=== PATIENT | female | born 1985 | race Caucasian/White ===

== ENCOUNTER 2018-04-04 06:37 | Day surgery (SDC) | payer BC ==
[2018-04-02 09:22] VITALS: BMI 45.1
[~2018-04-04 06:37] MED LIST: LACTATED RINGERS 1,000 ML IV SCH
[2018-04-04] MEDS ORDERED: LACTATED RINGERS 1,000 ML IV ONE (07:05)
[2018-04-04 07:23] VITALS: TEMP 98.2
[2018-04-04] MEDS ORDERED: PROPOFOL 10 MG/ML 20 ML VIAL IV ONE (08:10)
[2018-04-04] MEDS ORDERED: LIDOCAINE 1% INJ 10MG/ML (20 ML MDV) ONE (08:10)
[2018-04-04] MEDS ORDERED: MIDAZOLAM 2 MG/2 ML VIAL ONE (08:10)
[2018-04-04] MEDS ORDERED: fentaNYL (PF) 50 MCG/ML 2 ML AMP ONE (08:10)
[2018-04-04 08:45] VITALS: RESP 16
[2018-04-04 09:05] VITALS: BP 104/71; PULSE 69
--- NOTE | 2018-04-04 15:18 | P.PCN ---
Date of Procedure: 04/04/18 Procedure(s) Performed: Procedures: 1. Esophagogastroduodenoscopy and biopsy. 2. Colonoscopy and biopsy. Preoperative diagnosis: Epigastric pain and change in bowel habits. Postoperative diagnosis: 1. Mild gastritis duodenitis. 2. Normal colonoscopy. 3. Incidental finding of pinworms in cecum. 4. Biopsies obtained from the duodenum, antrum and esophagus. 5. Blind biopsy obtained from the terminal ileum. 6. Random biopsies obtained from the colon. Preparation: HalfLytely prep. Sedation: Was provided by anesthesia. Brief clinical history: The patient is a 33-year-old female who has been having issues with abdominal pains and change in bowel habits for around 3 years that progressively got worse over the last month. The patient was seen in 2014 around the time when she had her cholecystectomy. Biopsies showed colitis. She was treated with Bentyl. Typically, she has one to 3 bowel movements per day then may have no bowel movements and feels distressed and then would have urgent bowel movements and diarrhea for 24 hours or so. This has been worse over the prior month. She also complained of abdominal distention and gassiness. I scheduled this evaluation to assess for inflammatory bowel disease , celiac disease or other pathology. Procedure: With the patient on her left lateral decubitus position and after informed consent and adequate sedation, I passed the Olympus-GIF 160 video upper endoscope through the cricopharyngeus down the esophagus. The esophagus appeared healthy with no obvious erosions, ulcers, strictures or Laguna's esophagus. No definite hiatal hernia. The endoscope was then passed into the stomach which was insufflated with air and inspected in detail including the retroflex view in the cardia. There was some mottling and erythema in the antrum consistent with mild gastritis but there was no ulcers or erosions. Pyloric channel, duodenal bulb, post bulbar area and descending duodenum appeared within normal limits. Because of her symptoms, I obtained biopsies from the duodenum, antrum and esophagus then the endoscope was withdrawn and I proceeded to perform the colonoscopy. Perianal area did not show any fissures or fistulas. There were no masses felt on digital rectal examination. The Olympus CFQ 160L video colonoscope was then inserted in the rectum in the usual fashion and advanced to the cecum. I was not able to intubate the ileocecal valve after a few attempts, but I was able to obtain a blind biopsy from the terminal ileum. There was couple pinworms noted moving in the cecum, but the colon, otherwise, appeared healthy. I obtained random colon biopsies then I retroflexed the endoscope in the rectum before the endoscope was withdrawn. The patient tolerated the procedure well. Plan: I summarized the findings to the patient and her sister. I gave her a prescription for albendazole to take 400 mg at this time and 400 mg 2 weeks later. I advised her to discuss with pediatrics whether her 2 children should be treated as well and she will be discussing with you treatment for other household family members. I will see her in follow-up in few weeks to assess her progress and decide if her symptoms are at least partially related to her pinworm infestation. I will keep you updated on her progress.
== END 2018-04-04 09:37 | disposition home or self-care (01) ==
LOC: ORWHC2ENDO 06:37
DX: K29.50 Unspecified chronic gastritis without bleeding (principal); B96.81 Helicobacter pylori [H. pylori] as the cause of diseases classified elsewhere; K52.9 Noninfective gastroenteritis and colitis, unspecified; K29.80 Duodenitis without bleeding; B80 Enterobiasis; E03.9 Hypothyroidism, unspecified; Z79.890 Hormone replacement therapy; Z79.899 Other long term (current) drug therapy
CPT/HCPCS: 81025; 88305; 88342; 45380; 43239; J2250; J2001; J3010; J2704

== ENCOUNTER 2018-11-27 19:03 | Emergency (ER) | payer BC, OTHER ==
[2018-11-27 19:07] VITALS: BP 140/86; PULSE 105; RESP 16; TEMP 97.9
--- NOTE | 2018-11-27 21:58 | XR ---
EXAMINATION TYPE: XR chest 2V DATE OF EXAM: 11/27/2018 COMPARISON: 07/14/2012 HISTORY: Chest pain TECHNIQUE: Frontal and lateral views of the chest are obtained. FINDINGS: Heart and mediastinum are normal. Lungs are clear. Diaphragm is normal. Bony thorax appear s normal. IMPRESSION: Normal chest. No change.
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
== END 2018-11-27 22:57 | disposition home or self-care (01) ==
LOC: EC 19:03
DX: S16.1XXA Strain of muscle, fascia and tendon at neck level, initial encounter (principal); R51 Headache; E03.9 Hypothyroidism, unspecified; F32.9 Major depressive disorder, single episode, unspecified; Z79.890 Hormone replacement therapy; Z79.899 Other long term (current) drug therapy; V43.52XA Car driver injured in collision with other type car in traffic accident, initial encounter; Y93.89 Activity, other specified; Y92.410 Unspecified street and highway as the place of occurrence of the external cause
CPT/HCPCS: 70450; 71046; 72125; 99284

== ENCOUNTER → 2019-06-03 | Outpatient (CLI) | payer BC ==
--- NOTE | 2019-06-04 04:44 | CT ---
EXAMINATION TYPE: CT abdomen pelvis wo con DATE OF EXAM: 06/03/2019 COMPARISON: 10/06/2014 HISTORY: 34-year-old female with microscopic hematuria, left sided sharp pain CT DLP: 1185 mGycm. Automated exposure control for dose reduction was used. TECHNIQUE: Contiguous axial scanning of the abdomen and pelvis without IV contrast. Coronal and sagit nerissa reconstructions performed. FINDINGS: Heart normal size without pericardial effusion. Lung bases clear without pleural effusion. Noncontrast appearance of the liver, adrenal glands, spleen, and pancreas show no gross abnormality. Cholecystectomy clips. Kidneys show no contour deforming lesion, nephrolithiasis, or hydronephrosis. No dilated small bowel, free fluid, or free air. There is a round 4.0 cm lesion along the lesser curvature of the stomach, axial image 48 and coronal image 48. Prominent 7 mm gastrohepatic ligament lymph node. Scattered prominent mesenteric lymph nodes measurin g up to 6 mm or larger in 2015. Normal appendix. Mild stool burden. Uterus and nondistended. Multiple pelvic phleboliths. Uterus anteverted. Both ovaries are visualized with a 2.0 cm dominant follicle or functional cyst in the left ovary. No abnormal fluid collection in the pelvis or pelvic lymphadenopathy. Bones: No osseous destructive process. IMPRESSION: 1. A 4.0 cm round intramural mass along the lesser curvature of the stomach. Neoplasm is suggested th ough the overall smooth contours favors a benign etiology. GIST tumor or other mesenchymal tumors are the favored differential. Further evaluation and workup recommended. 2. No nephrolithiasis or hydronephrosis. 3. No acute inflammatory process identified in the abdomen or pelvis.
== END | disposition home or self-care (01) ==
LOC: RADCTMAIN 15:58
PROVIDERS: ATTEND Family Medicine
DX: R22.9 Localized swelling, mass and lump, unspecified (principal); R31.9 Hematuria, unspecified
CPT/HCPCS: 74176

== ENCOUNTER 2019-06-18 08:08 | Day surgery (SDC) | payer BC ==
[2019-06-16 11:48] VITALS: BMI 46.3
[~2019-06-18 08:08] MED LIST changes: +LIDOCAINE 1% 20 ML VIAL (10MG/ML) FOR IV START INTRADERMA PRN
[2019-06-18 08:37] VITALS: RESP 16; TEMP 97.8
[2019-06-18] MEDS ORDERED: LIDOCAINE 1% INJ 10MG/ML (20 ML MDV) ONE (09:27)
[2019-06-18] MEDS ORDERED: PROPOFOL 10 MG/ML 20 ML VIAL IV ONE (09:27)
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
--- NOTE | 2019-06-18 09:41 | P.OP ---
Date of Procedure: 06/18/19 Preoperative Diagnosis: Gastric mass Postoperative Diagnosis: Gastric mass Procedure(s) Performed: EGD with biopsy Anesthesia: MAC Surgeon: Bharat Villagomez Pathology: other (Gastric mass) Condition: stable Disposition: PACU Description of Procedure: The patient's placed on the endoscopy table in the lateral position. She received IV sedation. The gastroscope placed oropharynx and passed in the esophagus and stomach. Scope was then placed through the pylorus. First and second portion duodenum appeared normal. Scope summer back and the antrum this. Mildly scope summer back and on the lesser curvature in the mid portion of the stomach there was a gastric mass seen. The mass measures approximately 4 cm in size and smooth located below the mucosa. 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 This area is biopsied. The area was also tattooed with the ink spot. The scope was then withdrawn remainder some appeared normal. There is no significant hiatal hernia. The GE junction was at 47 is. The distal esophagus. Normal. The proximal esophagus appeared normal. Scope was withdrawn for petros ent.
[2019-06-18] MEDS ORDERED: ONDANSETRON 4 MG/2 ML VIAL IVP ONE (09:46)
[2019-06-18 10:00] VITALS: BP 123/87; PULSE 91
== END 2019-06-18 10:46 | disposition home or self-care (01) ==
LOC: ORWHC2ENDO 08:08
PROVIDERS: ATTEND Surgery
DX: K29.50 Unspecified chronic gastritis without bleeding (principal); K21.9 Gastro-esophageal reflux disease without esophagitis; E07.9 Disorder of thyroid, unspecified; M54.9 Dorsalgia, unspecified; F90.9 Attention-deficit hyperactivity disorder, unspecified type; F32.9 Major depressive disorder, single episode, unspecified; K58.9 Irritable bowel syndrome, unspecified; Z87.19 Personal history of other diseases of the digestive system; Z86.19 Personal history of other infectious and parasitic diseases; Z98.890 Other specified postprocedural states; Z90.49 Acquired absence of other specified parts of digestive tract; Z98.51 Tubal ligation status; Z91.89 Other specified personal risk factors, not elsewhere classified; Z87.898 Personal history of other specified conditions; Z79.890 Hormone replacement therapy; Z84.89 Family history of other specified conditions; Z79.899 Other long term (current) drug therapy
CPT/HCPCS: 81025; 88305; 43239; 43236; J2405; J2001; J2704; 43243

== ENCOUNTER → 2019-06-21 | Outpatient (CLI) | payer BC ==
[2019-06-21 10:31] LABS: Basophils % (A) 0 %; Eosinophils # (A) 0.1 k/uL (0-0.7); Eosinophils % (A) 1 %; HCT 40.3 % (34.0-46.0); HGB 13.7 gm/dL (11.4-16.0); Lymphocytes % (A) 39 %; MCH 28.1 pg (25.0-35.0); MCV 82.5 fL (80.0-100.0); Mean Platelet Volume 8.1; Monocytes # (A) 0.2 k/uL (0-1.0); Monocytes % (A) 4 %; Neutrophils # (A) 2.7 k/uL (1.3-7.7); Neutrophils % (A) 54 %; Platelet Count 310 k/uL (150-450); RBC 4.88 m/uL (3.80-5.40); RDW 13.2 % (11.5-15.5)
== END | disposition home or self-care (01) ==
LOC: LABPAT 10:07
PROVIDERS: ATTEND Anesthesiology
DX: Z01.812 Encounter for preprocedural laboratory examination (principal)
CPT/HCPCS: 36415; 85025

== ENCOUNTER 2019-06-23 07:17 | Inpatient (IN) | payer BC ==
[2019-06-20 08:28] VITALS: BMI 46.3
[~2019-06-23 07:17] MED LIST changes: +DEXAMETHASONE SOD PHOSPHATE 10 MG/ML 1 ML VIAL IV ONE; +HEPARIN SODIUM,PORCINE 5,000 UNIT/ML 1 ML VIAL SQ ONE; +HYDROmorphone 0.5 MG/0.5 ML SYRINGE IVP PRN; -LACTATED RINGERS 1,000 ML IV SCH; +ONDANSETRON 4 MG/2 ML VIAL IVP ONE; +SCOPOLAMINE 1.5MG/72HR PATCH TRANSDERM ONE; +ceFAZolin 3 GM in SODIUM CHLORIDE 0.9% 100 ML IVPB ONE
[2019-06-23] MEDS: LACTATED RINGERS 1,000 ML IV SCH ×2 (07:45→11:08)
[2019-06-23] MEDS ORDERED: MIDAZOLAM 2 MG/2 ML VIAL IV ONE (08:15)
--- NOTE | 2019-06-23 08:57 | P.GSHP ---
History of Present Illness H&P Date: 06/23/19 Chief Complaint: gastric mass this a 34-year-old female with history of gastric mass. Patient resents today for partial gastrectomy. Patient's aware the risks of surgery including conversionto the open procedure Past Medical History Past Medical History: GERD/Reflux, Thyroid Disorder Additional Past Medical History / Comment(s): HX OF IBS, COLITIS & H-PYLORI., STATES LEFT BACK PAIN -TUMOR ON STOMACH. History of Any Multi-Drug Resistant Organisms: None Reported Past Surgical History: Section, Cholecystectomy, Tubal Ligation Additional Past Surgical History / Comment(s): colonoscopy , egd 06/18/19 Past Anesthesia/Blood Transfusion Reactions: Previous Problems w/ Anesthesia, Family Hisory of Malignant Hyperthermia, Postoperative Nausea & Vomiting (PONV) Additional Past Anesthesia/Blood Transfusion Reaction / Comment(s): PT HAD SEVERE PONV AFTER . PTS SISTER HAD MALIGNANT HYPERTHERMIA WITH TONSIL SURGERY AT AGE 8. SHE IS NOW 37 YRS OLD, STATES IT WAS GENERAL ANESTHESIA - UNKNOWN NAME OF MEDICATION., PT HAS NOT BEEN TESTED. Past Psychological History: ADD/ADHD, Depression Smoking Status: Never smoker Past Alcohol Use History: Occasional Past Drug Use History: None Reported - Past Family History Sister(s) Family Medical History: No Reported History Additional Family Medical History / Comment(s): malignant hyperthermia from anesthesia Medications and Allergies Home Medications Medication Instructions Recorded Confirmed Type Levothyroxine Sodium [Synthroid] 137 mcg PO DAILY 11/27/18 06/20/19 History Ergocalciferol [Vitamin D2] 50,000 unit PO MO 06/16/19 06/20/19 History Escitalopram Oxalate [Lexapro] 20 mg PO HS 06/16/19 06/20/19 History Lisdexamfetamine Dimesylate 20 mg PO QAM 06/16/19 06/20/19 History [Vyvanse] Allergies Allergy/AdvReac Type Severity Reaction Status Date / Time No Known Allergies Allergy Verified 06/20/19 08:22 Surgical - Exam Vital Signs Temp Pulse Resp BP Pulse Ox 97.4 F L 85 20 140/63 97 06/23/19 07:41 06/23/19 07:41 06/23/19 07:41 06/23/19 07:41 06/23/19 07:41 - General well developed, well nourished, no distress - Eyes PERRL - ENT normal pinna - Neck no masses - Respiratory normal expansion - Cardiovascular Rhythm: regular - Abdomen Abdomen: soft, non tender Assessment and Plan Assessment: history gastric mass. We'll perform laparoscopic possible open partial gastrectomy.
[2019-06-23] MEDS ORDERED: ROCURONIUM BROMIDE 10 MG/ML 10 ML VIAL IV ONE (09:20)
[2019-06-23] MEDS ORDERED: HYDROmorphone (PF) 1 MG/ML ONE (09:20)
[2019-06-23] MEDS ORDERED: MIDAZOLAM 2 MG/2 ML VIAL ONE (09:20)
[2019-06-23] MEDS ORDERED: LIDOCAINE 1% INJ 10MG/ML (20 ML MDV) ONE (09:20)
[2019-06-23] MEDS ORDERED: KETOROLAC 30 MG/ML 1 ML VIAL ONE (09:20)
[2019-06-23] MEDS ORDERED: fentaNYL (PF) 50 MCG/ML 2 ML AMP ONE (09:20)
[2019-06-23] MEDS ORDERED: GLYCOPYRROLATE 0.2 MG/ML 2 ML VIAL ONE (09:20)
[2019-06-23] MEDS ORDERED: NEOSTIGMINE 1 MG/ML 10 ML VIAL ONE (09:20)
[2019-06-23] MEDS ORDERED: ONDANSETRON 4 MG/2 ML VIAL ONE (09:20)
[2019-06-23] MEDS ORDERED: PROPOFOL 10 MG/ML 20 ML VIAL IV ONE (09:20)
[2019-06-23] MEDS ORDERED: LACTATED RINGERS 1,000 ML IV ONE (09:34)
[2019-06-23] MEDS ORDERED: ceFAZolin 1,000 MG VIAL IVPB ONE (09:48)
[2019-06-23] MEDS ORDERED: BUPIVACAIN-EPI 0.25%-1:200,000 30 ML VIAL SQ ONE (10:06)
[2019-06-23] MEDS ORDERED: NALOXONE 0.4 MG/ML 1 ML VIAL IV PRN ×2 (10:18→11:11)
[2019-06-23] MEDS ORDERED: ROPIVACAINE 250 MG, HYDROMORPHONE (PF) 5 MG in SODIUM CHLORIDE 0.9% 200 ML EPIDURAL PRN (10:18)
[2019-06-23] MEDS ORDERED: HYDROmorphone 1 MG/ML 1 ML SYRINGE IVP PRN (11:11)
[2019-06-23] MEDS ORDERED: ONDANSETRON 4 MG TAB PO PRN (11:14)
--- NOTE | 2019-06-23 11:36 | P.OP ---
Date of Procedure: 06/23/19 Preoperative Diagnosis: Gastric mass Postoperative Diagnosis: Gastric mass Procedure(s) Performed: Laparoscopic partial gastrectomy Anesthesia: CARMEN Surgeon: Bharat Villagomez Estimated Blood Loss (ml): 10 Pathology: other (Gastrectomy) Condition: stable Disposition: PACU Description of Procedure: The patient was placed on the operating room table in the supine position. She received general anesthesia and then was placed in dorsal lithotomy position. Her abdomen was prepped and draped in sterile fashion. The skin incision sites were anesthetized 1% local Xylocaine. And then the skin was incised with an 11 blade in the left lateral position. Using a blade less trocar under direct visualization the peritoneal cavity was entered. The abdomen was insufflated and then a 5 mm laparoscope was placed into the peritoneal cavity. A 5 mm trocar was placed in the right epigastric, and right lateral position. A 15 mm trocar was placed in the supra-umbilical position and another 5 mm trocar was placed in the left lateral position. The left lateral lobe of the liver was retracted. The stomach was visualized. The gastric mass was visualized. It appeared to be in the mid body of stomach on the anterior gastric wall. Using a laparoscopic CAMERON stapler the gastric mass was wedged off of the anterior gastric wall. The stomach was then insufflated with methylene blue normal saline. There is no evidence of any extravasation. The duodenum could be seen filling. At this point the abdomen was irrigated. The gastric mass brought through the 15 mm trocar site after the fascia opening was extended. The trochars were removed. The fascia of the 15 mm trocar site was closed with 0 Vicryl. Skin was closed interrupted 3-0 Monocryl suture. Dermabond dressing was applied.
[2019-06-23] MEDS: ALBUTEROL NEBULIZED 2.5 MG/3 ML INHALATION SCH ×3 (11:43→20:30)
[2019-06-23] MEDS: KETOROLAC 30 MG/ML 1 ML VIAL IVP SCH ×3 (13:06→23:59)
[2019-06-23] MEDS: 0.9% NACL WITH KCL 20 MEQ/L 1,000 ML IV SCH ×3 (13:15→23:59)
[2019-06-23] MEDS ORDERED: ENOXAPARIN 40 MG/0.4 ML SYRINGE SQ SCH (21:00)
[2019-06-23] MEDS: ENOXAPARIN 40 MG/0.4 ML SYRINGE SQ SCH (23:59)
[2019-06-24] MEDS: KETOROLAC 30 MG/ML 1 ML VIAL IVP SCH ×3 (05:28→16:25)
[2019-06-24 07:23] LABS: Potassium 4.5 mmol/L (3.5-5.1)
[2019-06-24 07:32] LABS: Basophils % (A) 0 %; Eosinophils % (A) 1 %; HCT 34.9 % (34.0-46.0); HGB 11.4 gm/dL (11.4-16.0); Hypochromasia Slight; Lymphocytes # (A) 1.1 k/uL (1.0-4.8); Lymphocytes % (A) 15 %; MCH 28.6 pg (25.0-35.0); MCHC 32.8 g/dL (31.0-37.0); Mean Platelet Volume 8.5; Monocytes # (A) 0.4 k/uL (0-1.0); Monocytes % (A) 5 %; Neutrophils # (A) 5.9 k/uL (1.3-7.7); Neutrophils % (A) 79 %; Platelet Count 283 k/uL (150-450); RBC 4.01 m/uL (3.80-5.40); RDW 13.2 % (11.5-15.5); WBC 7.5 k/uL (3.8-10.6)
[2019-06-24] MEDS: ALBUTEROL NEBULIZED 2.5 MG/3 ML INHALATION SCH ×4 (08:02→19:14)
[2019-06-24] MEDS ORDERED: ONDANSETRON 4 MG/2 ML VIAL IVP PRN (08:56)
[2019-06-24] MEDS: ENOXAPARIN 40 MG/0.4 ML SYRINGE SQ SCH ×2 (08:59→20:40)
[2019-06-24] MEDS ORDERED: SODIUM CHLORIDE 0.9% 500 ML 500 ML IV ONE (09:01)
[2019-06-24] MEDS: ONDANSETRON 4 MG/2 ML VIAL IVP PRN ×2 (09:02→16:18)
[2019-06-24] MEDS: PANTOPRAZOLE 40 MG/10 ML VIAL IV SCH (09:03)
[2019-06-24] MEDS: 0.9% NACL WITH KCL 20 MEQ/L 1,000 ML IV SCH ×3 (09:10→21:50)
[2019-06-24] MEDS: METOCLOPRAMIDE 5 MG/ML 2 ML VIAL IVP SCH ×2 (11:30→18:50)
--- NOTE | 2019-06-24 11:33 | P.CONS ---
History of Present Illness - Reason for Consult Consult date: 06/24/19 medical management GERD, hypothyroidism, depression,ADD Requesting physician: Bharat Villagomez - Chief Complaint gastric mass - History of Present Illness this is a 34-year-old femalewith history of gastroesophageal reflux disease, hypothyroidism, IBS/colitis,PONV, ADD, depression, gastric mass status post laparoscopic partial gastrectomy.tolerated procedure well. Pain controlled with epidural. No flatus, no bowel movement.NPO.received Zofran this morning for nausea. Denies chest pain, palpitations or shortness of breath. Denies lightheadedness, dizziness or focal deficits. Review of Systems ROS Statement: Those systems with pertinent positive or pertinent negative responses have been documented in the HPI. ROS Other: All systems not noted in ROS Statement are negative. Past Medical History Past Medical History: GERD/Reflux, Thyroid Disorder Additional Past Medical History / Comment(s): HX OF IBS, COLITIS & H-PYLORI., STATES LEFT BACK PAIN -TUMOR ON STOMACH. History of Any Multi-Drug Resistant Organisms: None Reported Past Surgical History: Section, Cholecystectomy, Tubal Ligation Additional Past Surgical History / Comment(s): colonoscopy , egd 06/18/19 Past Anesthesia/Blood Transfusion Reactions: Previous Problems w/ Anesthesia, Family Hisory of Malignant Hyperthermia, Postoperative Nausea & Vomiting (PONV) Additional Past Anesthesia/Blood Transfusion Reaction / Comm: PT HAD SEVERE PONV AFTER . PTS SISTER HAD MALIGNANT HYPERTHERMIA WITH TONSIL SURGERY AT AGE 8. SHE IS NOW 37 YRS OLD, STATES IT WAS GENERAL ANESTHESIA -UNKNOWN NAME OF MEDICATION., PT HAS NOT BEEN TESTED. Past Psychological History: ADD/ADHD, Depression Smoking Status: Never smoker Past Alcohol Use History: Occasional Past Drug Use History: None Reported - Past Family History Sister(s) Family Medical History: No Reported History Additional Family Medical History / Comment(s): malignant hyperthermia from anesthesia Medications and Allergies Home Medications Medication Instructions Recorded Confirmed Type Levothyroxine Sodium [Synthroid] 137 mcg PO DAILY 11/27/18 06/20/19 History Ergocalciferol [Vitamin D2] 50,000 unit PO MO 06/16/19 06/20/19 History Escitalopram Oxalate [Lexapro] 20 mg PO HS 06/16/19 06/20/19 History Lisdexamfetamine Dimesylate 20 mg PO QAM 06/16/19 06/20/19 History [Vyvanse] Allergies Allergy/AdvReac Type Severity Reaction Status Date / Time No Known Allergies Allergy Verified 06/20/19 08:22 Physical Exam Vitals: Vital Signs Temp Pulse Pulse Resp BP Pulse Ox 06/24/19 08:16 80 06/24/19 08:02 84 20 92 L 06/24/19 08:00 98.1 F 87 17 110/68 89 L 06/24/19 00:50 99 F 92 16 107/61 95 06/23/19 20:42 70 16 06/23/19 20:30 72 16 06/23/19 20:00 97.8 F 72 16 112/65 95 06/23/19 13:50 77 98/67 94 L 06/23/19 13:41 96 06/23/19 13:35 79 100/68 94 L 06/23/19 13:20 75 95/60 94 L 06/23/19 13:05 77 109/74 91 L 06/23/19 12:50 69 111/75 89 L 06/23/19 12:35 76 121/77 89 L 06/23/19 12:20 97.7 F 76 16 124/79 90 L 06/23/19 12:00 65 14 135/65 96 06/23/19 11:45 70 14 140/63 96 06/23/19 11:30 62 14 135/63 96 Intake and Output 06/23/19 06/24/19 06/24/19 22:59 06:59 14:59 Intake Total 1200 Output Total 700 Balance 500 Intake: Intake, IV Titration 1200 Amount 0.9% NaCl with KCl 20 Meq 1200 /l 1,000 ml @ 150 mls/hr IV .Q6H40M [facility] Rx#: [id number] Output: Urine 700 Other: Voiding Method Indwelling Catheter # Voids 1 PHYSICAL EXAM: VITAL SIGNS: [as above] GENERAL: sitting up in bed, no acute distress HEENT: Conjunctivae normal. eyes normal. NECK: No JVD. No thyroid enlargement. No LNs CARDIOVASCULAR: S1, S2 regular.. No murmur RESPIRATION: Breath sounds diminished in the bases. No rhonchi or crackles. No bronchial breathing. ABDOMEN: Soft, status post surgery.No guarding. faint hypoactive Bowel sounds. LEGS: No edema. no swelling PSYCHIATRY: Alert and oriented X3, mood and affect normal. NERVOUS SYSTEM: Cranial N 2-12 grossly normal. Moves all 4 limbs. Diffuse weakness No focal deficits. Strength and sensation grossly intact.. Skin: laparoscopic sites, clean ,dry,intact, no rash Lymphatic system. No LN neck axilla or groin. Results CBC & Chem 7: 06/24/19 06:31 06/24/19 06:31 Labs: Abnormal Lab Results - Last 24 Hours (Table) 06/24/19 Range/Units 06:31 Chloride 111 H (98-107) mmol/L Carbon Dioxide 20 L (22-30) mmol/L Assessment and Plan Assessment: anterior gastric wall mass, status post laparoscopic partial gastrectomy gastroesophageal reflux disease Hypothyroidism History of IBS, colitis Family history of malignant hyperthermia PONV ADD, ADHD Depression morbidly obese, BMI 48.9 Plan: Continue on current medication regime ,monitoring and sed rate treatment. Pain management, diet advancement as per surgery. Home meds have been reviewed -currently nothing by mouth. GI and DVTprophylaxisin place with Lovenox and Protonix. Further recommendations to follow.thank you Dr. Villagomez for the consult. The impression and plan of care has been dictated as directed. : I performed a history and examination of this patient, discussed the same with the dictator. I agree with the dictator's note ,documented as a scribe. Any additional findings or plans will be noted.
--- NOTE | 2019-06-24 12:09 | P.PN ---
Progress Note - Text Anesthesia POD 1. Status Post partial gastrectomy under general endotracheal anesthesia with an epidrual catheter placed at L3 4 for post surgical pain releif. VAS (0, 3) with Ropivicaine 0.1 % and Dilaudid 20 mcg / cc running at 6 cc / hr. Lower extremity strength (4/4). no sedation. Site looks OK.
[2019-06-24] MEDS ORDERED: HYDROcodone/APAP 5-325MG 1 EACH TAB PO PRN (12:28)
--- NOTE | 2019-06-24 12:31 | P.PN ---
Subjective Progress Note Date: 06/24/19 CHIEF COMPLAINT: gastric mass HISTORY OF PRESENT ILLNESS: 34-year-old female who is status post laparoscopic partial gastrectomy secondary to gastric mass. Postop day #1. Patient examined this morning at the bedside. Patient has an epidural infusing. She denies pain. She reports nausea. Upper GI has not been completed at the time of examination. Vital signs are stable. PHYSICAL EXAM: VITAL SIGNS: Reviewed. GENERAL: Well-developed in no acute distress. HEENT: No sclera icterus. Extraocular movements grossly intact. Moist buccal mucosa. Head is atraumatic, normocephalic. ABDOMEN: Soft. Nondistended. surgical sites clean dry and intact without drainage. NEUROLOGIC: Alert and oriented. Cranial nerves II through XII grossly intact. ASSESSMENT: 1. gastric mass, status post laparoscopic partial gastrectomy PLAN: -Discontinue epidural catheter per Dr. Villagomez -Dilaudid PRN for pain. Will add [place] -Discontinue kelley catheter -UGI ordered. Await results. May begin clear liquid diet pending upper GI results -Increase activity as tolerated -Incentive spirometry -Anticipate discharge home tomorrow Nurse practitioner note has been reviewed by physician. Signing provider agrees with the documented findings, assessment, and plan of care. Objective - Vital Signs Vital signs: Vital Signs Temp 98.1 F 06/24/19 08:00 Pulse 80 06/24/19 12:01 Resp 20 06/24/19 08:02 BP 110/68 06/24/19 08:00 Pulse Ox 96 06/24/19 11:49 Intake & Output 06/23/19 06/24/19 06/24/19 18:59 06:59 18:59 Intake Total 1789 1200 Output Total 60 700 Balance 1729 500 Weight 129.1 kg Intake: IV 1789 Intake, IV Titration 1200 Amount 0.9% NaCl with KCl 20 Meq 1200 /l 1,000 ml @ 150 mls/hr IV .Q6H40M [facility] Rx#: [id number] Output: Urine 50 700 Estimated Blood Loss 10 Other: Voiding Method Indwelling Catheter Indwelling Catheter # Voids 1 - Labs CBC & Chem 7: 06/24/19 06:31 06/24/19 06:31 Labs: Abnormal Lab Results - Last 24 Hours (Table) 06/24/19 Range/Units 06:31 Chloride 111 H (98-107) mmol/L Carbon Dioxide 20 L (22-30) mmol/L
--- NOTE | 2019-06-24 13:40 | FL ---
EXAMINATION TYPE: FL UGI DATE OF EXAM: 06/24/2019 COMPARISON: CT abdomen and pelvis June 03, 2019 HISTORY: Gist tumor status post partial gastrectomy yesterday. TECHNIQUE: A single contrast UGI study is performed utilizing 50 cc of Isovue-370. Total 40 seconds of fluoroscopic time utilized during procedure. 27 spot images of the PACS. FINDINGS: The esophagus shows normal motility and emptying into the stomach. No evidence of hiatal hernia or s tricture noted. The stomach shows delay in passing from fundus and body into distal body and antrum. After waiting ju st over 8 minutes from initial drinking there is passage into antrum and pylorus. After waiting addit ional 13 minutes there is subsequent passage into duodenal sweep up to mid third portion. No contrast extravasation to suggest leak is identified. Patient did not show increased symptoms of nausea or vo miting prior from baseline after starting. IMPRESSION: Fairly moderate obstruction at site of surgery distal body without leak.
[2019-06-24] MEDS ORDERED: diphenhydrAMINE 50 MG/ML 1 ML VIAL IVP ONE (17:15)
[2019-06-24] MEDS: DEXAMETHASONE SOD PHOSPHATE 4 MG/ML 1 ML VIAL IV SCH (17:42)
[2019-06-25] MEDS: METOCLOPRAMIDE 5 MG/ML 2 ML VIAL IVP SCH ×3 (00:06→11:03)
[2019-06-25] MEDS: KETOROLAC 30 MG/ML 1 ML VIAL IVP SCH ×2 (00:07→05:21)
[2019-06-25] MEDS: DEXAMETHASONE SOD PHOSPHATE 4 MG/ML 1 ML VIAL IV SCH ×3 (00:07→11:04)
[2019-06-25] MEDS: LACTATED RINGERS 1,000 ML IV SCH (00:10)
[2019-06-25] MEDS: ALBUTEROL NEBULIZED 2.5 MG/3 ML INHALATION SCH ×2 (07:40→11:17)
[2019-06-25 07:51] VITALS: BP 123/74; RESP 15; TEMP 97.8
[2019-06-25] MEDS: ENOXAPARIN 40 MG/0.4 ML SYRINGE SQ SCH (09:39)
[2019-06-25] MEDS: PANTOPRAZOLE 40 MG/10 ML VIAL IV SCH (09:39)
[2019-06-25 11:20] VITALS: PULSE 72
--- NOTE | 2019-06-25 12:07 | P.DS ---
Providers Date of admission: 06/23/19 07:17 Expected date of discharge: 06/25/19 Attending physician: Bharat Villagomez Consults: 06/23/19 11:11 Consult Physician Routine Consulting Provider: Patrick Meyer Consult Reason/Comments: Medical management Do you want consulting provider notified?: Yes Primary care physician: Patrick Meyer Hospital Course: 34-year-old female who is status post laparoscopic partial gastrectomy secondary to gastric mass. Patient is doing well postoperatively without any immediate complications. Tolerating diet without nausea or vomiting. Pain controlled on oral medications. Vitals stable. She is stable for DC home today. Please see EMR for further hospital course details. She is to remain on full liquid/soft diet for 1 week. Discharge Diagnosis: 1. gastric mass, status post laparoscopic partial gastrectomy Nurse practitioner note has been reviewed by physician. Signing provider agrees with the documented findings, assessment, and plan of care. Plan - Discharge Summary Discharge Rx Participant: Yes New Discharge Prescriptions: No Action Levothyroxine Sodium [Synthroid] 137 mcg PO DAILY Lisdexamfetamine Dimesylate [Vyvanse] 20 mg PO QAM Escitalopram Oxalate [Lexapro] 20 mg PO HS Ergocalciferol [Vitamin D2] 50,000 unit PO MO Discharge Medication List Levothyroxine Sodium [Synthroid] 137 mcg PO DAILY 11/27/18 [History] Ergocalciferol [Vitamin D2] 50,000 unit PO MO 06/16/19 [History] Escitalopram Oxalate [Lexapro] 20 mg PO HS 06/16/19 [History] Lisdexamfetamine Dimesylate [Vyvanse] 20 mg PO QAM 06/16/19 [History] Follow up Appointment(s)/Referral(s): Patrick Meyer DO [Primary Care Provider] - 06/30/19 2:20 pm
--- NOTE | 2019-06-25 17:26 | P.PN ---
Subjective Progress Note Date: 06/25/19 this is a 34-year-old femalewith history of gastroesophageal reflux disease, hypothyroidism, IBS/colitis,PONV, ADD, depression, gastric mass status post laparoscopic partial gastrectomy.tolerated procedure well. Pain controlled with epidural. No flatus, no bowel movement.NPO.received Zofran this morning for nausea. Denies chest pain, palpitations or shortness of breath. Denies lightheadedness, dizziness or focal deficits. 06/25/2019 significant clinical improvement. Tolerating liquid diet with no nausea vomiting or diarrhea.pain controlled.denies chest pain, lightheadedness, shortness of breath. Objective - Vital Signs Vital signs: Vital Signs Temp 97.8 F 06/25/19 07:50 Pulse 72 06/25/19 11:30 Resp 15 06/25/19 07:50 BP 123/74 06/25/19 07:50 Pulse Ox 92 L 06/25/19 07:50 Intake & Output 06/24/19 06/25/19 06/25/19 18:59 06:59 18:59 Intake Total 350 95 Output Total 300 200 Balance -300 150 95 Intake: Intake, IV Titration 100 Amount 0.9% NaCl with KCl 20 Meq 100 /l 1,000 ml @ 100 mls/hr IV .Q10H [facility] Rx#: [id number] Oral 250 95 Output: Urine 300 200 Uretheral ([place]) 300 Other: Voiding Method Indwelling Catheter - Exam VITAL SIGNS: [as above] GENERAL: alert and oriented 3,sitting up in bed, no acute distress HEENT: Conjunctivae normal. eyes normal. NECK: No JVD. No thyroid enlargement. No LNs CARDIOVASCULAR: S1, S2 regular. No murmur RESPIRATION: Breath sounds diminished in the bases. No rhonchi or crackles. no wheezing ABDOMEN: Soft, status post surgery.No guarding. positive Bowel sounds. LEGS: No edema. no swelling NERVOUS SYSTEM: Cranial N 2-12 grossly normal. Moves all 4 limbs. No focal deficits. Strength and sensation grossly intact.. Skin: laparoscopic sites, clean ,dry,intact, no rash - Labs CBC & Chem 7: 06/24/19 06:31 06/24/19 06:31 Assessment and Plan Assessment: anterior gastric wall mass, status post laparoscopic partial gastrectomy gastroesophageal reflux disease Hypothyroidism History of IBS, colitis Family history of malignant hyperthermia PONV ADD, ADHD Depression morbidly obese, BMI 48.9 Plan: Continue on current medication regime ,monitoring and sed rate treatment. discharge planning in progress for today as per surgery. Follow-up with PCP in [address] Villagomez for the consult. The impression and plan of care has been dictated as directed. : I performed a history and examination of this patient, discussed the same with the dictator. I agree with the dictator's note ,documented as a scribe. Any additional findings or plans will be noted.
--- NOTE | 2019-06-27 14:39 | CDI ---
Documentation Clarification Form Date: 06/27/19 From: Isabela Lomeli Phone: If you have a question about this query, please contact Lorna Peres, Service Superintendent at [phone] between 8am and 5pm. Admit Date: 06/23/19 Discharge Date: 06/25/19 Patient Name: Radha Schultz Visit Number: [id number] ATTENTION: The Clinical Documentation Specialists (CDI) and [facility] Coding Staff appreciate your assistance in clarifying documentation. Please respond to the clarification below the line at the bottom and electronically sign. The CDI & [facility] Coding staff will review the response and follow-up if needed. Please note: Queries are made part of the Legal Health Record. If you have any questions, please contact the author of this message via ITS. Dear Dr. Bharat Villagomez. 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 Documentation states: GERD/reflux.hypothyroidism, morbid obesity w BMI 48.9 Clinical Indicators: 34 year old with hx of gastric mass. Presents for partial gastrectomy. In your professional opinion, do you agree with the pathology report specifying gastric mesenchymal/stromal tumor as a GIST tumor? Yes No Other (please specify) Unable to determine Unable to determine MTDD
== END 2019-06-25 13:20 | disposition home or self-care (01) | DRG 375 ==
LOC: 2ORMAIN 07:17 → EDSTATUS 09:15 → 4SSUR 10:55
PROVIDERS: ADMIT Surgery; ATTEND Surgery
PROC: 0DB64ZZ Excision of Stomach, Percutaneous Endoscopic Approach (ICD-10-PCS; principal; 2019-06-23 09:00)
DX: C49.A2 Gastrointestinal stromal tumor of stomach (principal); Z68.42 Body mass index [BMI] 45.0-49.9, adult; E66.01 Morbid (severe) obesity due to excess calories; E03.9 Hypothyroidism, unspecified; K58.9 Irritable bowel syndrome, unspecified; K21.9 Gastro-esophageal reflux disease without esophagitis; F32.9 Major depressive disorder, single episode, unspecified; M54.9 Dorsalgia, unspecified; F90.9 Attention-deficit hyperactivity disorder, unspecified type; Z79.890 Hormone replacement therapy; Z79.899 Other long term (current) drug therapy; Z90.49 Acquired absence of other specified parts of digestive tract; Z98.51 Tubal ligation status; Z98.891 History of uterine scar from previous surgery; Z84.89 Family history of other specified conditions
CPT/HCPCS: 36415; 74240; 80051; 81025; 85025; 86850; 86900; 86901; 88309; 88341; 88342; 94640; 94760

== ENCOUNTER 2019-07-04 10:03 | Emergency (ER) | payer BC ==
[2019-07-04 10:19] VITALS: RESP 18
--- NOTE | 2019-07-04 10:52 | ED ---
Extremity Problem HPI - General Chief complaint: Extremity Problem,Nontraumatic Stated complaint: rt leg pain, post op Time Seen by Provider: 07/04/19 10:23 Source: patient Mode of arrival: ambulatory Limitations: no limitations - History of Present Illness Initial comments: 34-year-old female presents today for chief complaint of right knee and leg pain . Patient states she had a recent operation for removal of an abdominal tumor on the performed by Dr. Blood. She states she still awaiting the biopsy reports. She is unsure if this is cancer. Patient states that she was told there is a possible competition of DVT from abdominal surgery. Patient states she noticed right knee pain that is also tightly calf, and that there is some grinding of the knee, denies trauma, laxity, redness of the join. Denies leg swelling, chest pain shortness of breath, fever, flu like symptoms. Patient denies abdominal pain and states she feels she is healing well. remaining ROS (- ). Upon arrival patient appears well tehre is no signs of acute distress she is ambulatory. - Related Data Home Medications Medication Instructions Recorded Confirmed Levothyroxine Sodium [Synthroid] 137 mcg PO DAILY 11/27/18 06/20/19 Ergocalciferol [Vitamin D2] 50,000 unit PO MO 06/16/19 06/20/19 Escitalopram Oxalate [Lexapro] 20 mg PO HS 06/16/19 06/20/19 Lisdexamfetamine Dimesylate 20 mg PO QAM 06/16/19 06/20/19 [Vyvanse] Previous Rx's Medication Instructions Recorded Hydrocodone/Acetaminophen [[place] 1 tab PO Q6HR PRN 3 Days #12 tab 06/25/19 5-325] Ondansetron Odt [Zofran Odt] 4 mg PO Q8HR PRN #9 tab 06/25/19 Allergies Allergy/AdvReac Type Severity Reaction Status Date / Time No Known Allergies Allergy Verified 07/04/19 10:19 Review of Systems ROS Statement: Those systems with pertinent positive or pertinent negative responses have been documented in the HPI. ROS Other: All systems not noted in ROS Statement are negative. Past Medical History Past Medical History: GERD/Reflux, Thyroid Disorder Additional Past Medical History / Comment(s): HX OF IBS, COLITIS & H-PYLORI., STATES LEFT BACK PAIN -TUMOR ON STOMACH. History of Any Multi-Drug Resistant Organisms: None Reported Past Surgical History: Section, Cholecystectomy, Tubal Ligation Additional Past Surgical History / Comment(s): colonoscopy , egd 06/18/19 tumor removal/ partial gastrectomy Past Anesthesia/Blood Transfusion Reactions: Previous Problems w/ Anesthesia, Family Hisory of Malignant Hyperthermia, Postoperative Nausea & Vomiting (PONV) Additional Past Anesthesia/Blood Transfusion Reaction / Comment(s): PT HAD SEVERE PONV AFTER . PTS SISTER HAD MALIGNANT HYPERTHERMIA WITH TONSIL SURGERY AT AGE 8. SHE IS NOW 37 YRS OLD, STATES IT WAS GENERAL ANESTHESIA - UNKNOWN NAME OF MEDICATION., PT HAS NOT BEEN TESTED. Past Psychological History: ADD/ADHD, Depression Smoking Status: Never smoker Past Alcohol Use History: Occasional Past Drug Use History: None Reported - Past Family History Sister(s) Family Medical History: No Reported History Additional Family Medical History / Comment(s): malignant hyperthermia from anesthesia General Exam - General Exam Comments Initial Comments: General: The patient is awake and alert, in no distress, and does not appear acutely ill. Eye: Pupils are equal, round and reactive to light, extra-ocular movements are intact. No nystagmus. There is normal conjunctiva bilaterally. No signs of icterus. Cardiovascular: There is a regular rate and rhythm. No murmur, rub or gallop is appreciated. Respiratory: Lungs are clear to auscultation, respirations are non-labored, breath sounds are equal. No wheezes, stridor, rales, or rhonchi. Gastrointestinal: Soft, non-distended, non-tender abdomen without masses or organomegaly noted. There is no rebound or guarding present. Incision are none rythematous with no drainage no dehiscence noted Musculoskeletal: Normal inspection of knees bilaterally. No swelling noted of the calfs bilaterally. No masses of the calf noted. No masses or popliteal fossa. Normal ROM, with some tenderness at the right knee however no decrease in range of motion with full strength sensation proximal distal to the affected site. DP pulses equal bilaterally 2+. Neurological: A&O x 3. CN II-XII intact grossly, There are no obvious motor or sensory deficits. Coordination appears grossly intact. Speech is normal. Skin: Skin is warm and dry and no rashes or lesions are noted. Psychiatric: Cooperative, appropriate mood & affect, normal judgment. Limitations: no limitations Course Vital Signs 07/04/19 07/04/19 10:13 11:34 Temperature 98.2 F 98.5 F Pulse Rate 98 100 Respiratory 18 18 Rate Blood Pressure 113/77 120/53 O2 Sat by Pulse 98 98 Oximetry Medical Decision Making - Medical Decision Making 34-year-old female presents today for chief complaint of knee, calf pain concern for DVT. No history of trauma or falls. No redness or signs of infection and physical examination. Patient is overweight. Recent abdominal surgery. Ultrasound negative for deep venous thrombosis. Patient able to weight-bear and is neurovascular intact. At this time feels is most likely an inflammatory process. I recommended patient follow-up with her primary care provider, if symptoms are persistent to follow-up with orthopedic surgery. Patient is agreeable to this care plan discharge at this time. Discussed case metallic by Dr. Boyle who is agreeable to plan discharge at this time. I recommend if symptoms are persistent to also repeat ultrasound of the right leg in one week patient verbalized understanding - Lab Data Result diagrams: 07/04/19 11:06 07/04/19 11:06 Lab Results 07/04/19 07/04/19 Range/Units 11:06 11:06 WBC 6.1 (3.8-10.6) k/uL RBC 5.13 (3.80-5.40) m/uL Hgb 14.1 (11.4-16.0) gm/dL Hct 42.1 (34.0-46.0) % MCV 82.2 (80.0-100.0) fL MCH 27.4 (25.0-35.0) pg MCHC 33.4 (31.0-37.0) g/dL RDW 13.2 (11.5-15.5) % Plt Count 308 (150-450) k/uL Neutrophils % 56 % Lymphocytes % 34 % Monocytes % 5 % Eosinophils % 2 % Basophils % 1 % Neutrophils # 3.4 (1.3-7.7) k/uL Lymphocytes # 2.1 (1.0-4.8) k/uL Monocytes # 0.3 (0-1.0) k/uL Eosinophils # 0.1 (0-0.7) k/uL Basophils # 0.0 (0-0.2) k/uL Sodium 140 (137-145) mmol/L Potassium 4.5 (3.5-5.1) mmol/L Chloride 106 (98-107) mmol/L Carbon Dioxide 25 (22-30) mmol/L Anion Gap 9 mmol/L BUN 6 L (7-17) mg/dL Creatinine 0.62 (0.52-1.04) mg/dL Est GFR (CKD-EPI)AfAm >90 (>60 ml/min/1.73 sqM) Est GFR (CKD-EPI)NonAf >90 (>60 ml/min/1.73 sqM) Glucose 119 H (74-99) mg/dL Calcium 9.7 (8.4-10.2) mg/dL Total Bilirubin 0.7 (0.2-1.3) mg/dL AST 30 (14-36) U/L ALT 29 (4-34) U/L Alkaline Phosphatase 91 (38-126) U/L Total Protein 7.0 (6.3-8.2) g/dL Albumin 4.2 (3.5-5.0) g/dL Disposition Clinical Impression: Right leg pain Disposition: HOME SELF-CARE Condition: Good Instructions (If sedation given, give patient instructions): Leg Pain (ED) Additional Instructions: Please use medication as discussed. Please follow-up with family doctor in the next 2 days. Please return to emergency room if the symptoms increase or worsen or for any other concerns. Is patient prescribed a controlled substance at d/c from ED?: No Referrals: Patrick Meyer DO [Primary Care Provider] - 1-2 days Time of Disposition: 11:49
--- NOTE | 2019-07-04 11:28 | US ---
EXAMINATION TYPE: US venous doppler duplex LE RT DATE OF EXAM: 07/04/2019 10:51 AM COMPARISON: NONE CLINICAL HISTORY: pain swelling abdominal surgery 06/23. Not on blood thinners. Patient states havin g leg cramping. No redness. SIDE PERFORMED: Right TECHNIQUE: The lower extremity deep venous system is examined utilizing real time linear array sonog tristin with graded compression, doppler sonography and color-flow sonography. VESSELS IMAGED: External Iliac Vein (EIV) Common Femoral Vein Deep Femoral Vein Greater Saphenous Vein * Femoral Vein Popliteal Vein Small Saphenous Vein * Proximal Calf Veins (* superficial vessels) Right Leg: Negative for DVT Grayscale, color doppler, spectral doppler imaging performed of the deep veins of the right lower ext remity. There is normal flow, compressibility, vascular waveforms. IMPRESSION: No ultrasonographic evidence for acute DVT in the right lower extremity.
[2019-07-04 11:31] LABS: Basophils % (A) 1 %; Eosinophils # (A) 0.1 k/uL (0-0.7); Eosinophils % (A) 2 %; HCT 42.1 % (34.0-46.0); HGB 14.1 gm/dL (11.4-16.0); Lymphocytes # (A) 2.1 k/uL (1.0-4.8); Lymphocytes % (A) 34 %; MCH 27.4 pg (25.0-35.0); MCHC 33.4 g/dL (31.0-37.0); MCV 82.2 fL (80.0-100.0); Mean Platelet Volume 8.1; Monocytes # (A) 0.3 k/uL (0-1.0); Monocytes % (A) 5 %; Neutrophils # (A) 3.4 k/uL (1.3-7.7); Neutrophils % (A) 56 %; Platelet Count 308 k/uL (150-450); RBC 5.13 m/uL (3.80-5.40); RDW 13.2 % (11.5-15.5); WBC 6.1 k/uL (3.8-10.6)
[2019-07-04 11:38] LABS: ALT 29 U/L (4-34); African American GFR (CKD) >90 (>60 ml/min/1.73 sqM); Albumin 4.2 g/dL (3.5-5.0); Anion Gap 9 mmol/L; Blood Urea Nitrogen 6 mg/dL (7-17); Calcium 9.7 mg/dL (8.4-10.2); Carbon Dioxide 25 mmol/L (22-30); Chloride 106 mmol/L (98-107); Glucose 119 mg/dL (74-99); Non-African American GFR(CKD) >90 (>60 ml/min/1.73 sqM); Sodium 140 mmol/L (137-145); Total Bilirubin 0.7 mg/dL (0.2-1.3)
[2019-07-04 11:39] VITALS: BP 120/53; PULSE 100; TEMP 98.5
[2019-07-04 11:39] LABS: AST 30 U/L (14-36); Alkaline Phosphatase 91 U/L (38-126); Potassium 4.5 mmol/L (3.5-5.1)
== END 2019-07-04 12:01 | disposition home or self-care (01) ==
LOC: EC 10:03
DX: M79.604 Pain in right leg (principal); M25.561 Pain in right knee; E66.3 Overweight; Z68.42 Body mass index [BMI] 45.0-49.9, adult; E07.9 Disorder of thyroid, unspecified; F32.9 Major depressive disorder, single episode, unspecified; F90.9 Attention-deficit hyperactivity disorder, unspecified type; Z79.890 Hormone replacement therapy; Z79.899 Other long term (current) drug therapy
CPT/HCPCS: 36415; 80053; 85025; 99284

== ENCOUNTER → 2020-04-28 | Outpatient (CLI) | payer BC | END | disposition home or self-care (01) | LOC: LABWHC1 13:37 | PROVIDERS: ATTEND Family Medicine | DX: Z20.828 Contact with and (suspected) exposure to other viral communicable diseases (principal) | CPT/HCPCS: U0003; C9803 ==

== ENCOUNTER 2020-09-29 06:39 | Day surgery (SDC) | payer BC ==
[2020-09-24 14:20] VITALS: BMI 46.3
[~2020-09-29 06:39] MED LIST changes: -DEXAMETHASONE SOD PHOSPHATE 10 MG/ML 1 ML VIAL IV ONE; -HEPARIN SODIUM,PORCINE 5,000 UNIT/ML 1 ML VIAL SQ ONE; -HYDROmorphone 0.5 MG/0.5 ML SYRINGE IVP PRN; +LACTATED RINGERS 1,000 ML IV SCH; -LIDOCAINE 1% 20 ML VIAL (10MG/ML) FOR IV START INTRADERMA PRN; -ONDANSETRON 4 MG/2 ML VIAL IVP ONE; -SCOPOLAMINE 1.5MG/72HR PATCH TRANSDERM ONE; -ceFAZolin 3 GM in SODIUM CHLORIDE 0.9% 100 ML IVPB ONE
[2020-09-29 07:29] VITALS: RESP 18; TEMP 97.7
[2020-09-29] MEDS ORDERED: LACTATED RINGERS 1,000 ML IV ONE (07:30)
[2020-09-29] MEDS ORDERED: PROPOFOL 10 MG/ML 20 ML VIAL IV ONE (07:35)
[2020-09-29] MEDS ORDERED: LIDOCAINE 1% INJ 10MG/ML (20 ML MDV) ONE (07:35)
--- NOTE | 2020-09-29 08:07 | P.PCN ---
Date of Procedure: 09/29/20 Procedure(s) Performed: Brief history: Patient is a pleasant 35-year-old white female scheduled for an elective upper endoscopy as well as colonoscopy as a part of evaluation of chronic heartburn, epigastric pain and change in bowel habits for the last several years duration. Her symptoms are progressively getting worse. She was diagnosed with gastric schwannoma and underwent resection of the mass in June 2019. Since then the symptoms have been progressively increasing. She is hence scheduled for an upper endoscopy as well as colonoscopy to evaluate further. Procedure performed: Esophagogastroduodenoscopy with biopsy Colonoscopy with biopsy Preoperative diagnosis: Epigastric pain/GERD History of gastric schwannoma is post resection in June 2019 Abdominal pain and change in bowel habits Anesthesia: MAC Procedure: After informed consent was obtained from the patient was brought into the endoscopy unit and IV sedation was administered by anesthesia under continuous monitoring. Initially upper endoscopy was done. The Olympus GF 160 video endoscope was inserted inserted into the mouth and esophagus intubated without any difficulty and was gradually advanced into the stomach and duodenum and carefully examined. The bulb and second part of the duodenum appeared normal. Biopsies were done from the duodenum to rule out celiac disease. The scope was then withdrawn into the stomach adequately insufflated with air and upon careful examination the antrum had mild gastritis and biopsies were done from this area. The body, cardia and fundus appeared normal. The scope was then withdrawn into the esophagus. The GE junction was located at 40 cm to the incisors. It appeared regular with no erythema erosions or ulcerations. Rest of the esophagus appeared normal. Biopsies were done from the distal esophagus. Patient tolerated the procedure well. At this time the patient continued to remain sedation. Initial digital rectal examination was normal. Olympus CF 160 video colonoscope was then inserted into the rectum and gradually advanced to the cecum without any difficulty. Careful examination was performed as the scope was gradually being withdrawn. The prep was excellent. The cecum, ascending colon, transverse colon, descending colon, appeared normal. In the sigmoid colon there was a 3 mm polyp that was removed by cold biopsy. Rest of the sigmoid colon and rectum appeared normal. Retroflexion was performed in the rectum and no lesions were noted. Patient tolerated the procedure well. Impression: 1. Upper endoscopy revealed mild antral gastritis but no evidence of esophagitis or peptic ulcer disease 2. Colonoscopy revealed a 3 mm; sigmoid polyp but no evidence of colitis. Recommendations: Findings of this examination were discussed with the patient as well as her family. She was advised to follow with the biopsy results. She'll be seen in office in 2 weeks.
[2020-09-29 08:21] VITALS: BP 127/72; PULSE 90
== END 2020-09-29 08:55 | disposition home or self-care (01) ==
LOC: ORWHC2ENDO 06:39
PROVIDERS: ATTEND Internal Medicine Gastroenterology
DX: K63.5 Polyp of colon (principal); K29.50 Unspecified chronic gastritis without bleeding; K44.9 Diaphragmatic hernia without obstruction or gangrene; A04.8 Other specified bacterial intestinal infections; K21.9 Gastro-esophageal reflux disease without esophagitis; R19.4 Change in bowel habit; Z79.890 Hormone replacement therapy; Z79.899 Other long term (current) drug therapy; K58.9 Irritable bowel syndrome, unspecified; K52.9 Noninfective gastroenteritis and colitis, unspecified
CPT/HCPCS: 81025; 45380; 43239; J2001; J2704; 88305; 88342

== ENCOUNTER → 2021-02-15 | Outpatient (CLI) | payer BC | END | disposition home or self-care (01) | LOC: LABWHC1 14:20 | PROVIDERS: ATTEND Family Medicine | DX: Z11.59 Encounter for screening for other viral diseases (principal); Z20.822 Contact with and (suspected) exposure to COVID-19 | CPT/HCPCS: U0003; C9803; U0005 ==

== ENCOUNTER → 2021-05-24 | Outpatient (CLI) | payer BC ==
[2021-05-24 13:12] VITALS: BP 130/82; PULSE 80; TEMP 98.1; BMI 47.4
--- NOTE | 2021-05-24 15:18 | P.HPBAR ---
Bariatric H&P - History & Physicial H&P Date: 05/24/21 History & Physicial: Visit/CC: initial clinic visit Patient initial contact: Initial weight: Initial weight in pounds: Height: 5 ft 5 in Initial BMI: Last weight: Current weight: 129.274 kg Current weight in pounds: 285.00 Current BMI: 47.4 [place] body weight (based on NIH guidelines): 56.699 kg Excess body weight loss: The patient is a 36 year-old F who presents for Bariatric Assessment. Patient presents to discuss weight loss surgery. Patient is interested in sleeve gastrectomy. Patient had previous gastric surgery 2018 where a gastric schwannoma was excised from the anterior body of the stomach. She had an EGD pe rformed 09/26 by GI. No mention of previous surgery noted. BMI 47. Review of Systems The patient denies any acute changes in vision or hearing, no dysphagia or odynophagia, no chest pain or shortness of breath, no dysuria or hematuria, no headache, no runny nose, no rectal bleeding or melena, no unexplained weight loss Past Medical History Past Medical History: GERD/Reflux, Thyroid Disorder Additional Past Medical History / Comment(s): HX OF IBS, COLITIS & H-PYLORI., Hx. of TUMOR ON STOMACH. History of Any Multi-Drug Resistant Organisms: None Reported Past Surgical History: Section, Cholecystectomy, Tubal Ligation Additional Past Surgical History / Comment(s): EGD, Colonoscopy, tumor removal from stomach. Past Anesthesia/Blood Transfusion Reactions: Previous Problems w/ Anesthesia, Family Hisory of Malignant Hyperthermia, Postoperative Nausea & Vomiting (PONV) Additional Past Anesthesia/Blood Transfusion Reaction / Comm: PT HAD SEVERE PONV AFTER . PTS SISTER HAD MALIGNANT HYPERTHERMIA WITH TONSIL SURGERY AT AGE 8. SHE IS NOW 37 YRS OLD, STATES IT WAS GENERAL ANESTHESIA -UNKNOWN NAME OF MEDICATION., Patient states she is slow to awake after anesthesia but has not had any problems otherwise with her anesthesia. Past Psychological History: ADD/ADHD, Depression Smoking Status: Never smoker Past Alcohol Use History: Occasional Past Drug Use History: None Reported - Past Family History Sister(s) Family Medical History: No Reported History Additional Family Medical History / Comment(s): malignant hyperthermia from anesthesia Surgical - Exam Vital Signs Temp Pulse BP 98.1 F 80 130/82 05/24/21 13:09 05/24/21 13:09 05/24/21 13:09 Physical exam: General: Well-developed, well-nourished HEENT: Normocephalic, sclerae nonicteric Abdomen: Nontender, nondistended Extremities: No edema Neuro: Alert and oriented Bariatric Assessment & Plan (1) Morbid obesity with BMI of 45.0-49.9, adult Narrative/Plan: 36-year-old female interested in sleeve gastrectomy. Patient with history of previous gastric surgery. Increased risk of postoperative complications reviewed. Favor patient be seen by dedicated bariatric surgery team at [facility]. Patient is agreeable. Status: Acute Bariatric Checklist Checklist: Plan: Checklist: EGD: 1. Hiatal hernia: 2. H. Pylori: HgbA1c: Vitamin D: Smoking: Never smoker Primary care physician referral: Psychiatry clearance: Cardiology clearance: Sleep study: Diet journal: VTE risk score: VTE risk level: Rehab needs at discharge:
== END | disposition home or self-care (01) ==
LOC: BARWHC3 12:19
PROVIDERS: ATTEND Surgery
DX: E66.01 Morbid (severe) obesity due to excess calories (principal); Z68.42 Body mass index [BMI] 45.0-49.9, adult
CPT/HCPCS: 99203

== ENCOUNTER 2023-06-20 09:03 | Day surgery (SDC) | payer BC ==
[2023-06-20 09:22] VITALS: RESP 16; TEMP 97.7
[2023-06-20] MEDS ORDERED: LIDOCAINE 1% INJ 10MG/ML (20 ML MDV) ONE (09:42)
[2023-06-20] MEDS ORDERED: PROPOFOL 10 MG/ML 20 ML VIAL IV ONE (09:42)
--- NOTE | 2023-06-20 09:49 | P.PCN ---
Date of Procedure: 06/20/23 Procedure(s) Performed: BRIEF HISTORY: Patient is a 38-year-old, pleasant, white female scheduled for an upper endoscopy as a part of evaluation of long-standing history of GERD.. PROCEDURE PERFORMED: Esophagogastroduodenoscopy. PREOPERATIVE DIAGNOSIS: Long-standing history of GERD. IV sedation per anesthesia. PROCEDURE: After informed consent was obtained, the patient was brought into the endoscopy unit. IV sedation was administered by Anesthesia under continuous monitoring. Initially the Olympus GIF-140 video endoscope was inserted into the mouth. Esophagus intubated without any difficulty. It was gradually advanced into the stomach and duodenum and carefully examined. The bulb and the second part of the duodenum appeared normal. The scope at this time was withdrawn to the stomach, adequately insufflated with air, and upon careful examination, mucosa of the antrum, patchy areas of erythema consistent with gastritis and biopsies were done from this area. Mucosa of the body, cardia and the fundus appeared normal. The scope was then withdrawn into the esophagus. The GE junction was located at 39 cm from the incisors. The esophagus appeared normal. There were no erosions or ulcerations seen and the patient tolerated the procedure well. IMPRESSION: 1. Mild antral gastritis. 2. Normal-appearing esophagus with no evidence of esophagitis or Laguna's esophagus. RECOMMENDATIONS: The findings of this examination were discussed with the patient as well as a family. Follow with the biopsy results. She was advised to continue with omeprazole 20 mg daily half hour before dinnertime and follow antireflux measures.
[2023-06-20 10:39] VITALS: BP 128/84; PULSE 80
== END 2023-06-20 10:32 ==
LOC: ORWHC2ENDO 09:03
PROVIDERS: ATTEND Internal Medicine Gastroenterology
DX: K29.50 Unspecified chronic gastritis without bleeding (principal); K21.9 Gastro-esophageal reflux disease without esophagitis; K58.9 Irritable bowel syndrome, unspecified; E07.9 Disorder of thyroid, unspecified; Z79.899 Other long term (current) drug therapy; Z79.890 Hormone replacement therapy; Z85.028 Personal history of other malignant neoplasm of stomach
CPT/HCPCS: 81025; 88305; 88342; 43239; J2001; J2704

== ENCOUNTER → 2024-01-01 | Outpatient (CLI) | payer BC ==
[2024-01-01 15:22] LABS: Basophils # (A) 0.02 X 10*3/uL (0.00-0.10); Basophils % (A) 0.4 %; Eosinophils # (A) 0.03 X 10*3/uL (0.04-0.35); Eosinophils % (A) 0.6 %; HCT 40.7 % (37.2-46.3); Lymphocytes % (A) 47.5 %; MCH 26.7 pg (27.0-32.0); MCHC 31.9 g/dL (32.0-37.0); MCV 83.7 FL (80.0-97.0); Mean Platelet Volume 10.7 FL (9.5-12.2); Monocytes # (A) 0.27 X 10*3/uL (0.20-1.00); Monocytes % (A) 5.8 %; NRBC Per 100 WBC 0 X 10*3/uL (0.00-0.01); Neutrophils % (A) 45.5 %; Platelet Count 341 X 10*3/uL (140-440); RBC 4.86 X 10*6/uL (4.10-5.20); RDW 14.5 % (11.5-14.5); WBC 4.63 X 10*3/uL (4.50-10.00)
== END | disposition home or self-care (01) ==
LOC: LABPAT 12:08
PROVIDERS: ATTEND Obstetrics & Gynecology Obstetrics
DX: Z01.812 Encounter for preprocedural laboratory examination (principal); N92.0 Excessive and frequent menstruation with regular cycle; N93.8 Other specified abnormal uterine and vaginal bleeding
CPT/HCPCS: 85025

== ENCOUNTER 2024-01-03 05:55 | Day surgery (SDC) | payer BC ==
[2023-12-31 16:12] VITALS: BMI 41.8
--- NOTE | 2024-01-02 16:42 | P.HPOB ---
History of Present Illness H&P Date: 01/02/24 Chief Complaint: Heavy menstrual bleeding, DUB 38 yo female that presents for evaluation of HMB, SUNNY. she states her menses have been worsening over the last year. menses are noted to be irregular in frequency with a heavy flow and cots. US revealing a slightly enlarged uterus at 10cm, ( done in november of 2022) endometrial biopsy was rpeformed in october and was negative with noted proliferative endometrium appreciated c/section x 2 Review of Systems Constitutional: Denies chills, Denies fatigue, Denies fever Ears, nose, mouth and throat: Denies headache Cardiovascular: Reports leg edema Respiratory: Denies dyspnea Gastrointestinal: Denies constipation, Denies diarrhea, Denies nausea, Denies vomiting Genitourinary: Denies Menstruation: Reports menses variable, Reports period heavy 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 PTS SISTER HAD MALIGNANT HYPERTHERMIA WITH TONSIL SURGERY AT AGE 8. SHE IS NOW 37 YRS OLD, STATES IT WAS GENERAL ANESTHESIA - UNKNOWN NAME OF MEDICATION., Patient states she is slow to awake after anesthesia but has not had any problems otherwise with her anesthesia. Smoking Status: Never smoker - Past Family History Sister(s) Family Medical History: No Reported History Additional Family Medical History / Comment(s): malignant hyperthermia from anesthesia Medications and Allergies Home Medications Medication Instructions Recorded Confirmed Type Ergocalciferol [Vitamin D2] 50,000 unit PO WE 06/16/19 12/31/23 History Levothyroxine Sodium [Synthroid] 175 mcg PO DAILY 06/18/23 12/31/23 History buPROPion XL [Wellbutrin XL] 150 mg PO DAILY 06/18/23 12/31/23 History Lisdexamfetamine Dimesylate 50 mg PO QAM 12/31/23 12/31/23 History [Vyvanse] Tirzepatide [Zepbound] 7.5 mg SQ MO 12/31/23 12/31/23 History Allergies Allergy/AdvReac Type Severity Reaction Status Date / Time No Known Allergies Allergy Verified 12/31/23 15:55 Exam Osteopathic Statement: *. No significant issues noted on an osteopathic structural exam other than those noted in the History and Physical/Consult. targeted physical exam, in general this is a well nourished well developed female in no acute distress, breathing is non labored, abdomen is soft and non tender, external genitalia is normal without lesion, uterus is mobile and non tender, no adnexal masses are appreciated Assessment and Plan (1) Heavy menstrual bleeding Status: Acute Code(s): N92.0 - EXCESSIVE AND FREQUENT MENSTRUATION WITH REGULAR CYCLE SNOMED Code(s): 406875312 (2) DUB (dysfunctional uterine bleeding) Status: Acute Code(s): N93.8 - OTHER SPECIFIED ABNORMAL UTERINE AND VAGINAL BLEEDING SNOMED Code(s): 01802767742076 Plan: 38 yo that presents for H DC EA, she has been struggling with HMB, and they have been coming irregular in nature. she is counseled on options for treatment including EA/IUD and definitive treatment with RAVH as her uterus is slightly enlarged. surgery is reviewed and discussed. she elects H DC EA will proceed with H DC EA
[~2024-01-03 05:55] MED LIST changes: -LACTATED RINGERS 1,000 ML IV SCH; +Pre Op ABX Message 1 EACH MISC MISCELLANE ONE
[2024-01-03 06:58] VITALS: RESP 16
[2024-01-03] MEDS: LACTATED RINGERS 1,000 ML IV SCH (06:59)
[2024-01-03] MEDS ORDERED: MIDAZOLAM 2 MG/2 ML VIAL IV PRN (07:00)
[2024-01-03] MEDS ORDERED: fentaNYL (PF) 50 MCG/ML 2 ML AMP IVP PRN (07:00)
[2024-01-03] MEDS: IV FLUID CONTINUATION 1,000 ML IV ONE (07:00)
[2024-01-03] MEDS: LIDOCAINE 1% (10MG/ML) FOR IV START INTRADERMA PRN (07:00)
[2024-01-03] MEDS: SCOPOLAMINE 1 MG/72 HR PATCH TRANSDERM ONE (07:13)
[2024-01-03] MEDS: DEXAMETHASONE SOD PHOSPHATE 4 MG/ML 1 ML VIAL IV ONE (07:13)
[2024-01-03] MEDS: ONDANSETRON 4 MG/2 ML VIAL IVP ONE (07:13)
[2024-01-03 07:27] LABS: Glucose,Whole Blood 80 mg/dL (70-110)
[2024-01-03] MEDS ORDERED: fentaNYL (PF) 50 MCG/ML 2 ML AMP ONE (07:33)
[2024-01-03] MEDS ORDERED: MIDAZOLAM 2 MG/2 ML VIAL ONE (07:33)
[2024-01-03] MEDS ORDERED: PROPOFOL 10 MG/ML 20 ML VIAL IV ONE (07:33)
[2024-01-03] MEDS ORDERED: KETOROLAC 15 MG/ML 1 ML VIAL ONE (07:33)
[2024-01-03] MEDS: LIDOCAINE 1%-EPI 1:100,000 20 ML VIAL SQ ONE (07:35)
--- NOTE | 2024-01-03 08:10 | P.OP ---
Date of Procedure: 01/03/24 Preoperative Diagnosis: Heavy menstrual bleeding, dysfunctional uterine bleeding Postoperative Diagnosis: Same Procedure(s) Performed: Hysteroscopy, dilation and curettage, endometrial ablation with NovaSure Anesthesia: ELAINA MORALES Surgeon: Radha Burciaga Estimated Blood Loss (ml): 5 IV fluids (ml): 500 Urine output (ml): 50 Pathology: other (Endometrial curettings) Condition: stable Disposition: PACU Indications for Procedure: Irregular menstrual cycles heavy flow with clots worsening over the last year Operative Findings: Proliferative endometrium, uterine cavity total length of 9, cervical length of 5, width of 3, power of 83 for a total cycle length of 1 minute 18 seconds Description of Procedure: Patient was taken back to the operating suite where general anesthesia was obtained without difficulty by the anesthesia department. She was prepped and draped in the normal sterile fashion in the dorsolithotomy position. A weighted speculum placed in the posterior vaginal vault. The bladder was drained via red rubber catheter for clear yellow urine. The anterior lip of the cervix was visualized grasped with a single-tooth tenaculum and the endocervical canal was then serially dilated. Hysteroscope was placed through the cervix and toward the endometrial cavity. An intact cavity was appreciated menstrual bleeding was noted proliferative endometrium was appreciated. Hysteroscope was removed sharp curettage was then performed and the specimen was then sent to pathology for for analysis. The NovaSure was opened and set to the appropriate measurements for this patient's uterus length of 5, width of 3, power of 83, after cavity assessment was passed cycle was allowed to complete for 1 minute 18 seconds. Once the cycle was complete the NovaSure was removed intact without difficulty. The single-tooth tenaculum was taken off of the anterior lip of the cervix and hemostasis was appreciated from the tenaculum sites. All instruments were removed from the patient's vaginal vault. All counts were noted be correct x 2. Patient tolerated procedure well and was taken the recovery room awake in stable condition.
[2024-01-03 08:19] VITALS: TEMP 98
[2024-01-03] MEDS: HYDROmorphone 0.5 MG/0.5 ML SYRINGE IVP PRN (08:59)
[2024-01-03 09:42] VITALS: BP 110/73
[2024-01-03 10:06] VITALS: PULSE 79
== END 2024-01-03 10:34 | disposition home or self-care (01) ==
LOC: OR 05:55
PROVIDERS: ATTEND Obstetrics & Gynecology Obstetrics
DX: N92.0 Excessive and frequent menstruation with regular cycle (principal); N93.8 Other specified abnormal uterine and vaginal bleeding; K21.9 Gastro-esophageal reflux disease without esophagitis; E07.9 Disorder of thyroid, unspecified; K58.9 Irritable bowel syndrome, unspecified; Z90.49 Acquired absence of other specified parts of digestive tract; Z98.51 Tubal ligation status; Z98.891 History of uterine scar from previous surgery; Z79.890 Hormone replacement therapy; Z79.899 Other long term (current) drug therapy
CPT/HCPCS: 81025; 88305; 58563; J2250; J1100; J2405; J3010; J1885; J2704; J1170

== ENCOUNTER → 2024-01-08 | Outpatient (CLI) | payer BC ==
--- NOTE | 2024-01-12 16:52 | MM ---
Reason for Exam: Screening (asymptomatic). Baseline mammogram. Patient History: Menarche at age 11. First Full-Term at age 28. Patient used Hormonal Contraceptives for 20 years. Paternal aunt had breast cancer. Paternal aunt had breast cancer. Paternal aunt had breast cancer. Risk Values: Torie 5 year model risk: 0.6%. NCI Lifetime model risk: 11.1%. Prior Study Comparison: Patient's first Mammogram. Tissue Density: There are scattered areas of fibroglandular density. Findings: Analyzed By CAD. There is no suspicious group of microcalcifications or new suspicious mass in either breast. Overall Assessment: Negative, BI-RAD 1 Management: Screening Mammogram of both breasts in 1 year. . Patient should continue monthly self-breast exams. A clinical breast exam by your physician is recommended on an annual basis. This exam should not preclude additional follow-up of suspicious palpable abnormalities. Note on Torie scores and lifetime risk: 1. A Torie score greater than 3% is considered moderate risk. If this is the case, consider specialist referral to assess eligibility for a risk reducing agent. 2. If overall lifetime risk for the development of breast cancer is 20% or higher, the patient may qualify for future screening with alternating mammogram and breast MRI. Electronically signed and approved by: López Payne M.D. Radiologist
== END | disposition home or self-care (01) ==
LOC: RADMAMWWP 07:55
PROVIDERS: ATTEND Obstetrics & Gynecology Obstetrics
DX: Z12.31 Encounter for screening mammogram for malignant neoplasm of breast (principal); Z80.3 Family history of malignant neoplasm of breast
CPT/HCPCS: 77063; 77067

== ENCOUNTER 2024-10-30 18:23 | Emergency (ER) | payer BC ==
[2024-10-30 18:33] VITALS: RESP 18
--- NOTE | 2024-10-30 19:12 | ED ---
General Adult HPI - General Chief complaint: Abdominal Pain Stated complaint: Vomiting Time Seen by Provider: 10/30/24 18:39 Source: patient Mode of arrival: ambulatory Limitations: no limitations - History of Present Illness Initial comments: Dictation was produced using [employer] dictation software. please excuse any grammatical, word or spelling errors. Chief Complaint: 39-year-old female presents to the ER for nausea vomiting and abdominal pain History of Present Illness: Patient is a 39-year-old female presents to the emergency department 2 to 3 days of nausea vomiting abdominal pain. States that her emesis looks kind of yellow. She feels a little lightheaded. No obvious sick contacts. Patient states that feels like her belly hurts because she has been vomiting so much. No diarrhea. Denies any fever chills night sweats or any other constitutional symptoms. The ROS documented in this emergency department record has been reviewed and confirmed by me. Those systems with pertinent positive or negative responses have been documented in the HPI. All other systems are other negative and/or noncontributory. - Related Data Home Medications Medication Instructions Recorded Confirmed Ergocalciferol [Vitamin D2] 50,000 unit PO WE 06/16/19 12/31/23 Levothyroxine Sodium [Synthroid] 175 mcg PO DAILY 06/18/23 12/31/23 buPROPion XL [Wellbutrin XL] 150 mg PO DAILY 06/18/23 12/31/23 Lisdexamfetamine Dimesylate 50 mg PO QAM 12/31/23 12/31/23 [Vyvanse] Tirzepatide [Zepbound] 7.5 mg SQ MO 12/31/23 12/31/23 Previous Rx's Medication Instructions Recorded Metoclopramide [Reglan] 10 mg PO Q8H PRN 5 Days #15 tab 10/30/24 Allergies Allergy/AdvReac Type Severity Reaction Status Date / Time No Known Allergies Allergy Verified 10/30/24 18:33 Review of Systems ROS Statement: Those systems with pertinent positive or pertinent negative responses have been documented in the HPI. ROS Other: All systems not noted in ROS Statement are negative. 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 PTS SISTER HAD MALIGNANT HYPERTHERMIA WITH TONSIL SURGERY AT AGE 8. SHE IS NOW 37 YRS OLD, STATES IT WAS GENERAL ANESTHESIA - UNKNOWN NAME OF MEDICATION., Patient states she is slow to awake after anesthesia but has not had any problems otherwise with her anesthesia. Past Psychological History: ADD/ADHD, Depression Smoking Status: Never smoker Past Alcohol Use History: Rare Past Drug Use History: None Reported - Past Family History Sister(s) Family Medical History: No Reported History Additional Family Medical History / Comment(s): malignant hyperthermia from anesthesia General Exam - General Exam Comments Initial Comments: PHYSICAL EXAM: General Impression: Alert and oriented x3, not in acute distress HEENT: Normocephalic atraumatic, extra-ocular movements intact, pupils equal and reactive to light bilaterally, mucous membranes moist. Cardiovascular: Heart regular rate and rhythm Chest: Able to complete full sentences, no retractions, no tachypnea Abdomen: abdomen soft, non-tender, non-distended, no organomegaly Musculoskeletal: Pulses present and equal in all extremities, no peripheral edema Motor: no focal deficits noted Neurological: CN II-XII grossly intact, no focal motor or sensory deficits noted Skin: Intact with no visualized rashes Psych: Normal affect and mood Limitations: no limitations Course Vital Signs 10/30/24 10/30/24 18:29 20:44 Temperature 98.1 F Pulse Rate 63 86 Respiratory 18 18 Rate Blood Pressure 112/74 134/83 O2 Sat by Pulse 98 99 Oximetry Medical Decision Making - Medical Decision Making Was pt. sent in by a medical professional or institution (, PA, [employer], urgent care, hospital, or retirement...) When possible be specific @ -No Did you speak to anyone other than the patient for history (EMS, parent, family, police, friend...)? What history was obtained from this source @ -No Did you review nursing and triage notes (agree or disagree)? Why? @ -I reviewed and agree with nursing and triage notes Were old charts reviewed (outside hosp., previous admission, EMS record, old EKG, old radiological studies, urgent care reports/EKG's, retirement records)? Report findings @ -No old charts were reviewed Differential Diagnosis (chest pain, altered mental status, abdominal pain women, abdominal pain men, vaginal bleeding, musculoskeletal, weakness, fever, dyspnea, syncope, headache, dizziness, GI bleed, back pain, seizure, CVA, palpatations, mental health)? @ -Differential Abdominal Pain Women: Appendicitis, Cholecystitis, diverticulosis, ischemic bowel, pancreatitis, hepatitis, UTI, gastroenteritis, AAA, incarcerated hernia, bowel obstruction, constipation, inflammatory bowel, hepatitis, peptic ulcer disease, splenic infarction, perforated viscus, vulvitis, ovarian torsion, PID, kidney stone, placenta abruption, this is not meant to be an all-inclusive list EKG interpreted by me (3pts min.). @ -None done X-rays interpreted by me (1pt min.). @ -Abdominal x-ray is nonacute CT interpreted by me (1pt min.). @ -None done U/S interpreted by me (1pt. min.). @ -None done What testing was considered but not performed or refused? (CT, X-rays, U/S, labs)? Why? @ -None What meds were considered but not given or refused? Why? @ -None Was smoking cessation discussed for >3mins.? @ -No Were there social determinants of health that impacted care today? How? (Homelessness, low income, unemployed, alcoholism, drug addiction, tr ansportation, low edu. Level, literacy, decrease access to med. care, alf, rehab)? @ -No Was there de-escalation of care discussed even if they declined (Discuss DNR or withdrawal of care, Hospice)? DNR status @ -No What co-morbidities impacted this encounter? (DM, HTN, Smoking, COPD, CAD, Cancer, CVA, ARF, Chemo, Hep., AIDS, mental health diagnosis, sleep apnea, morbid obesity)? @ -None Was patient admitted / discharged? Hospital course, mention meds given and route, prescriptions, significant lab abnormalities, going to OR and other pertinent info. @ -39-year-old female presents emergency department with nausea vomiting. Vital signs stable. Patient well-appearing at the bedside. She does not have a surgical abdomen. Laboratory evaluation is unremarkable. Patient of IV fluids and IV antiemetics with improvement of symptoms. Patient agreeable with discharge. Return precautions discussed. Patient requesting p.o. antiemetics. She states that she does not like the taste of ODT's. Did you discuss the management of the patient with other professionals (professionals i.e. , PA, [employer], lab, RT, psych nurse, pediatric social worker, fleet mechanic, teacher, soil science technical officer, child welfare caseworker)? Give summary @ -No Was critical care preformed (if so, how long)? @ -No Undiagnosed new problem with uncertain prognosis? @ -No Drug Therapy requiring intensive monitoring for toxicity (Heparin, Nitro, Insulin, Cardizem)? @ -No Were any procedures done? @ -No Diagnosis/symptom? Acute, or Chronic, or Acute on Chronic? Uncomplicated (without systemic symptoms) or Complicated (systemic symptoms)? @ -Enteritis Side effects of treatment? @ -No Exacerbation, Progression, or Severe Exacerbation? @ -No Poses a threat to life or bodily function? How? (Chest pain, [place], [place], pneumonia, PE, COPD, DKA, ARF, appy, cholecystitis, CVA, Diverticulitis, Homicidal, Suicidal, threat to staff... and all critical care pts) @ -No - Lab Data Result diagrams: 10/30/24 19:31 10/30/24 19:31 Lab Results 10/30/24 10/30/24 Range/Units 19:31 19:31 WBC 9.18 (4.50-10.00) 10*3/uL RBC 5.17 (4.10-5.20) 10*6/uL Hgb 14.9 (12.0-15.0) g/dL Hct 44.5 (37.2-46.3) % MCV 86.1 (80.0-97.0) fL MCH 28.8 (27.0-32.0) pg MCHC 33.5 (32.0-37.0) g/dL Plt Count 354 (140-440) 10*3/uL MPV 9.7 (9.5-12.2) fL Immature Gran % (Auto) 0.3 % Neutrophils % 76.9 % Lymphocytes % 16.2 % Monocytes % 6.0 % Eosinophils % 0.3 % Basophils % 0.3 % Immature Gran # 0.03 (0.00-0.04) 10*3/uL Neutrophils # 7.05 (1.80-7.70) 10*3/uL Lymphocytes # 1.49 (0.90-5.00) 10*3/uL Monocytes # 0.55 (0.20-1.00) 10*3/uL Eosinophils # 0.03 L (0.04-0.35) 10*3/uL Basophils # 0.03 (0.00-0.10) 10*3/uL Sodium 136 L (137-145) mmol/L Potassium 3.9 (3.5-5.1) mmol/L Chloride 100 (98-107) mmol/L Carbon Dioxide 26 (22-30) mmol/L Anion Gap 10 mmol/L BUN 16 (7-17) mg/dL Creatinine 0.72 (0.52-1.04) mg/dL Est GFR (CKD-EPI)AfAm >90 (>60 ml/min/1.73 sqM) Est GFR (CKD-EPI)NonAf >90 (>60 ml/min/1.73 sqM) Glucose 78 (74-99) mg/dL Calcium 9.8 (8.4-10.2) mg/dL Total Bilirubin 1.0 (0.2-1.3) mg/dL AST 16 (14-36) U/L ALT 18 (4-34) U/L Alkaline Phosphatase 91 (38-126) U/L Total Protein 6.8 (6.3-8.2) g/dL Albumin 4.1 (3.5-5.0) g/dL Lipase 179 (23-300) U/L Disposition Clinical Impression: Enteritis Disposition: HOME SELF-CARE Condition: Fair Prescriptions: Metoclopramide [Reglan] 10 mg PO Q8H PRN 5 Days #15 tab PRN Reason: Nausea And Vomiting Is patient prescribed a controlled substance at d/c from ED?: No Referrals: Patrick Meyer DO [Primary Care Provider] - 1-2 days Time of Disposition: 21:11
[2024-10-30] MEDS: SODIUM CHLORIDE 0.9% 1,000 ML IV STA (19:33)
[2024-10-30] MEDS: ONDANSETRON 4 MG/2 ML VIAL IVP STA (19:33)
[2024-10-30 19:36] LABS: Basophils # (A) 0.03 10*3/uL (0.00-0.10); Basophils % (A) 0.3 %; Eosinophils # (A) 0.03 10*3/uL (0.04-0.35); Eosinophils % (A) 0.3 %; HCT 44.5 % (37.2-46.3); HGB 14.9 g/dL (12.0-15.0); Lymphocytes # (A) 1.49 10*3/uL (0.90-5.00); Lymphocytes % (A) 16.2 %; MCH 28.8 pg (27.0-32.0); MCHC 33.5 g/dL (32.0-37.0); MCV 86.1 fL (80.0-97.0); Mean Platelet Volume 9.7 fL (9.5-12.2); Monocytes # (A) 0.55 10*3/uL (0.20-1.00); Neutrophils # (A) 7.05 10*3/uL (1.80-7.70); Neutrophils % (A) 76.9 %; Platelet Count 354 10*3/uL (140-440); RBC 5.17 10*6/uL (4.10-5.20); RDW 12.9 % (11.5-14.5); WBC 9.18 10*3/uL (4.50-10.00)
[2024-10-30 20:05] LABS: ALT 18 U/L (4-34); AST 16 U/L (14-36); African American GFR (CKD) >90 (>60 ml/min/1.73 sqM); Albumin 4.1 g/dL (3.5-5.0); Alkaline Phosphatase 91 U/L (38-126); Anion Gap 10 mmol/L; Blood Urea Nitrogen 16 mg/dL (7-17); Calcium 9.8 mg/dL (8.4-10.2); Carbon Dioxide 26 mmol/L (22-30); Chloride 100 mmol/L (98-107); Glucose 78 mg/dL (74-99); Lipase 179 U/L (23-300); Non-African American GFR(CKD) >90 (>60 ml/min/1.73 sqM); Potassium 3.9 mmol/L (3.5-5.1); Sodium 136 mmol/L (137-145); Total Protein 6.8 g/dL (6.3-8.2)
--- NOTE | 2024-10-30 20:38 | XR ---
EXAMINATION TYPE: XR abdomen 1V DATE OF EXAM: 10/30/2024 8:08 PM COMPARISON: None. CLINICAL INDICATION: Female, 39 years old with history of nausea, TECHNIQUE: XR abdomen 1V view(s) obtained. FINDINGS: There is a normal colonic bowel gas pattern. No free air is evident. No differential air-fluid levels are present. No mass effect is evident Psoas margins are normal. No organomegaly is present. Cholecystectomy clips are in the right upper quadrant IMPRESSION: 1. Unremarkable Abdomen [facility], , 10/30/2024 8:36 PM
[2024-10-30 20:44] VITALS: BP 134/83
[2024-10-30 21:29] VITALS: PULSE 75; TEMP 98.2
== END 2024-10-30 21:29 | disposition home or self-care (01) ==
LOC: EC 18:23
DX: K52.9 Noninfective gastroenteritis and colitis, unspecified (principal)
CPT/HCPCS: 36415; 93005; 80053; 83690; 85025; 74018; 99284; 96374; 96361; J2405

== ENCOUNTER → 2025-01-13 | Outpatient (CLI) | payer BC ==
--- NOTE | 2025-01-13 12:12 | MM ---
Reason for Exam: Screening (asymptomatic). Last screening mammogram was performed 12 month(s) ago. Patient History: Menarche at age 11. First Full-Term at age 28. Patient used Hormonal Contraceptives for 20 years. Paternal aunt had breast cancer. Paternal aunt had breast cancer. Paternal aunt had breast cancer. Maternal aunt had breast cancer. Risk Values: Torie 5 year model risk: 0.7%. NCI Lifetime model risk: 11.0%. Prior Study Comparison: 01/08/2024 Bilateral MG 3D screening mammo w/cad, [facility]. Tissue Density: There are scattered areas of fibroglandular density. Findings: Analyzed By CAD. There is no suspicious group of microcalcifications or new suspicious mass in either breast. Overall Assessment: Negative, BI-RAD 1 Management: Screening Mammogram of both breasts in 1 year. . Patient should continue monthly self-breast exams. A clinical breast exam by your physician is recommended on an annual basis. This exam should not preclude additional follow-up of suspicious palpable abnormalities. Note on Torie scores and lifetime risk: 1. A Torie score greater than 3% is considered moderate risk. If this is the case, consider specialist referral to assess eligibility for a risk reducing agent. 2. If overall lifetime risk for the development of breast cancer is 20% or higher, the patient may qualify for future screening with alternating mammogram and breast MRI. [facility], , 01/13/2025 12:08 PM. Electronically signed and approved by: Jonny Freed M.D.
== END | disposition home or self-care (01) ==
LOC: RADMAMWWP 10:17
PROVIDERS: ATTEND Family Medicine
DX: Z12.31 Encounter for screening mammogram for malignant neoplasm of breast (principal); R92.323 Mammographic fibroglandular density, bilateral breasts; Z92.0 Personal history of contraception; Z80.3 Family history of malignant neoplasm of breast
CPT/HCPCS: 77063; 77067